=== PATIENT | female | born 1965 | race Caucasian/White ===

== ENCOUNTER 2016-05-18 19:12 | Emergency (ER) | payer MEDICAID ==
[2016-05-18] MEDS ORDERED: Azithromycin 250 MG Tab ONE (19:45)
[2016-05-18] MEDS ORDERED: Codeine/guaiFENesin 100mg-10 MG/5 ML Soln 118 ML Bottle ONE (19:45)
--- NOTE | 2016-05-18 20:52 | EDM.PDOC ---
ED HPI GENERAL MEDICAL PROBLEM - General Chief Complaint: General Stated Complaint: COLD SX Time Seen by Provider: 05/18/16 20:00 Source of Information: Reports: Patient - History of Present Illness INITIAL COMMENTS - FREE TEXT/NARRATIVE: Patient states she has had a cough for 2 weeks. This am coughing up green sputum. Yesterday temp 101. She admits more short of breath with coughing over the last 1 1/2 days. No wheezing. She did take Advil at 5:45 pm. Also has been more tired than usual. She did take some Robitussin [employer]. Onset Date: 05/04/16 - Related Data Allergies Allergy/AdvReac Type Severity Reaction Status Date / Time Sulfa (Sulfonamide Allergy Rash Verified 01/22/16 10:15 Antibiotics) Home Meds: Home Meds Fexofenadine [Lexie] 180 mg PO DAILY 01/02/15 [History] Omeprazole 20 mg PO DAILY 01/02/15 [History] Past Medical History HEENT History: Reports: Impaired vision Respiratory History: Reports: Other (see below) (states a history of asthma but she lost weight and it seemed to get better. She has a albuterol inhaler at home.) Other Gastrointestinal History: Dairy allergy gets loose stools and cramping - Infectious Disease History Infectious Disease History: Reports: Chicken pox Social & Family History - Tobacco Use Smoking Status *Q: Former Smoker Second Hand Smoke Exposure: No - Recreational Drug Use Recreational Drug Use: No ED ROS GENERAL - Review of Systems Review Of Systems: See Below Constitutional: Reports: fever, fatigue Respiratory: Reports: shortness of breath, cough, sputum Cardiovascular: Denies: Chest pain ED EXAM, GENERAL - Physical Exam Exam: See Below General Appearance: alert, WD/WN, no apparent distress Ear Exam: bilateral ear: auricle normal, TM normal Throat/Mouth: Normal inspection, Normal gums, Normal oropharynx Head: atraumatic Neck: supple, non-tender Respiratory/Chest: no respiratory distress, lungs clear, normal breath sounds Cardiovascular: regular rate, rhythm, no edema Departure - Departure Time of Disposition: 20:30 Disposition: Home, Self-Care 01 Condition: good Clinical Impression: Bronchitis Instructions: Azithromycin tablets, Upper Respiratory Infection, Adult, Easy-to -Read, Codeine; Guaifenesin oral solution or syrup Referrals: PCP,None [Primary Care Provider] - Forms: ED Department Discharge Additional Instructions: Begin taking prescribed Azithromycin tonight as directed: 2 tablets tonight, then 1 tablet daily until all pills are gone. May use prescribed Robitussin with Codeine at bedtime as needed to help with cough and for comfort to sleep. Ibuprofen and Tylenol may be alternated according to package instructions to help with pain if needed. Drink plenty of fluids and get plenty of rest. Follow up in clinic with regular provider if needed. Call with any questions. - Problem List & Annotations (1) Bronchitis SNOMED Code(s): 18798395 Code(s): J40 - BRONCHITIS, NOT SPECIFIED ACUTE OR CHRONIC Status: Acute Current Visit: Yes Annotation/Comment:: 05/18/2016 Will treat with zithromax 2 tab today and 1 tab for 4 days, She has an albuterol inhaler she can use at home . Will give her outpatient doses of Robitussin AC to use at HS help her sleep. To recheck if not getting better.
[2016-05-18 23:06] VITALS: BP 153/100
== END 2016-05-18 20:28 | disposition home or self-care (01) ==
LOC: LB.ED 19:12
DX: J40 Bronchitis, not specified as acute or chronic (principal); Z88.2 Allergy status to sulfonamides; Z87.891 Personal history of nicotine dependence
CPT/HCPCS: 99282; A9270-GY

== ENCOUNTER 2017-05-21 21:45 | Emergency (ER) | payer MEDICAID ==
[2017-05-21] MEDS: cloNIDine 0.1 MG Tab PO ONE (21:55)
--- NOTE | 2017-05-21 22:06 | EDM.PDOC ---
ED HPI GENERAL MEDICAL PROBLEM - General Chief Complaint: General Stated Complaint: Pain Time Seen by Provider: 05/21/17 21:45 Source of Information: Reports: Patient History Limitations: Reports: No Limitations - History of Present Illness INITIAL COMMENTS - FREE TEXT/NARRATIVE: According to patient she claims that she has been having left sided chest pressure all day since today afternoon. The pressure feeling is intermittent and make her left arm feel heavy. No chest pain. She claims she felt shortness of breath. No sweating. No exertional dyspnea. No nausea or vomiting. Pt claims she did not feel well and hence came into emergency room. Pressure does not change with deep breath or pressure on chest wall. Pt was treated for pneumonia last . She just finished Zpak today. No cough, fever or chills. No wheezing. No other complaints Onset: Today Onset Date: 05/21/17 Onset Time: 12:00 Duration: Intermittent, Waxing/Waning Location: Reports: Chest Quality: Reports: Ache Severity: Mild Improves with: Reports: None Worsens with: Reports: None Associated Symptoms: Denies: Confusion, Chest Pain, Cough, Fever/Chills, Loss of Appetite, Nausea/Vomiting, Rash, Seizure, Shortness of Breath, Syncope, Weakness Left Chest Pain Score (Numeric/FACES): 2 - Related Data Allergies Allergy/AdvReac Type Severity Reaction Status Date / Time Sulfa (Sulfonamide Allergy Rash Verified 01/22/16 10:15 Antibiotics) Home Meds: Home Meds Fexofenadine [Lexie] 180 mg PO DAILY 01/02/15 [History] Omeprazole 20 mg PO DAILY 01/02/15 [History] Estrogens, Conjugated [Premarin] 0.3 mg PO DAILY 05/18/16 [History] Past Medical History HEENT History: Reports: Impaired Vision Respiratory History: Reports: Other (See Below) Other Respiratory History: Environmental Allergies Gastrointestinal History: Reports: GERD Other Gastrointestinal History: Dairy allergy gets loose stools and cramping SITE SUPERINTENDENT History: Reports: Polycystic Ovaries - Infectious Disease History Infectious Disease History: Reports: Chicken Pox - Past Surgical History Female Surgical History: Reports: Hysterectomy Social & Family History - Family History Family Medical History: Noncontributory - Tobacco Use Smoking Status *Q: Former Smoker Second Hand Smoke Exposure: No - Caffeine Use Caffeine Use: Reports: Coffee - Recreational Drug Use Recreational Drug Use: No ED ROS GENERAL - Review of Systems Review Of Systems: See Below Constitutional: Denies: Fever, Chills, Weakness, Diaphoresis HEENT: Denies: Rhinitis, Sinus Problem, Throat Pain, Throat Swelling Respiratory: Reports: Shortness of Breath. Denies: Wheezing, Pleuritic Chest Pain, Cough, Sputum Cardiovascular: Reports: Chest Pain. Denies: Lightheadedness Endocrine: Denies: Fatigue GI/Abdominal: Denies: Abdominal Pain, Nausea, Vomiting : Denies: Dysuria, Flank Pain, Frequency Musculoskeletal: Denies: Joint Pain, Joint Swelling Skin: Denies: Pruritis, Rash ED EXAM, GENERAL - Physical Exam Exam: See Below Exam Limited By: No Limitations General Appearance: Alert, WD/WN, No Apparent Distress Eye Exam: Bilateral Eye: EOMI, PERRL Ears: Normal External Exam, Normal Canal, Hearing Grossly Normal, Normal TMs Ear Exam: Bilateral Ear: Auricle Normal, Canal Normal, TM normal Nose: Normal Inspection, Normal Mucosa, No Blood Throat/Mouth: Normal Inspection, Normal Lips, Normal Teeth, Normal Gums, Normal Oropharynx, Normal Voice, No Airway Compromise Head: Atraumatic, Normocephalic Neck: Normal Inspection, Supple, Non-Tender, Full Range of Motion Respiratory/Chest: No Respiratory Distress, Lungs Clear, Normal Breath Sounds, No Accessory Muscle Use, Chest Non-Tender Cardiovascular: Normal Peripheral Pulses, Regular Rate, Rhythm, No Edema, No Gallop, No JVD, No Murmur, No Rub Peripheral Pulses: 2+: Carotid (L), Carotid (R), Radial (L), Radial (R) GI/Abdominal: Normal Bowel Sounds, Soft, Non-Tender, No Organomegaly, No Distention, No Abnormal Bruit, No Mass Back Exam: Normal Inspection, Full Range of Motion, NT Extremities: Normal Inspection, Normal Range of Motion, Non-Tender, Normal Capillary Refill, No Pedal Edema Neurological: Alert, Oriented, CN II-XII Intact, Normal Cognition, Normal Gait, Normal Reflexes, No Motor/Sensory Deficits Skin Exam: Warm, Intact EKG INTERPRETATION EKG Date: 05/21/17 Rhythm: NSR Rate (Beats/Min): 72 [place]: Normal P-Wave: Present QRS: Normal ST-T: Normal QT: Normal Course - Vital Signs Text/Narrative:: Pt is 51 year old, who has been having chest pressure since today afternoon, which has not got worse, but has not got better. No chest pain, nausea vomiting , or exertional SOB. Pt's BP is elevated at 170/109mmhg. She does not have history of hypertension. Considering that her BP is high and has chest symptoms , will get cardiac workup. IF this is cardiac we should see elevated troponin as this has been going on for about 10 hrs now. Or this could be related to her elevated BP. Patient has received clonidine 0.1mg. Pt's Chest X-ray is normal. Her EKG is in normal sinus rhythm with rate of 72/ min. Her CBC is normal. CMP is normal. Her Troponin is negative. Pt reassured that the probable cause of her not feeling well is her elevated Blood pressure , which is coming down. This elevated blood pressure could be related to patient's anxiety about chest pressure. I have advised patient to monitor Blood pressure, few times over the next week. If the pressure is over 140/90mmhg, she should be seen in clinic to start her on blood pressure medication. Last Recorded V/S: Last Vital Signs Temp 97.5 F 05/21/17 22:30 Pulse 77 05/21/17 22:30 Resp 20 05/21/17 22:30 BP 142/91 H 05/21/17 22:30 Pulse Ox 97 05/21/17 22:30 - Orders/Labs/Meds Orders: Active Orders 24 hr Category Date Time Status EKG Documentation Completion [RC] ASDIRECTED Care 05/21/17 21:57 Ordered Chest 2V [CR] Stat Exams 05/21/17 21:56 Ordered Labs: Laboratory Tests 05/21/17 05/21/17 Range/Units 21:57 22:05 WBC 5.7 D (4.0-11.0) K/uL RBC 4.35 (3.80-5.80) M/uL Hgb 13.6 (11.5-16.5) g/dL Hct 41.6 (37.0-47.0) % MCV 96 (76-96) fL MCH 31.3 (27.0-32.0) pg MCHC 32.7 (31.0-35.0) g/dL RDW 13.4 (11.0-16.0) % Plt Count 213 (150-500) K/uL MPV 10.7 H (6.0-10.0) fL Neut % (Auto) 57.7 (45.0-70.0) % Lymph % (Auto) 28.4 (20.0-40.0) % Wallace % (Auto) 10.4 H (3.0-10.0) % Eos % (Auto) 2.8 (1.0-5.0) % Baso % (Auto) 0.7 H (0.0-0.5) % Neut # (Auto) 3.26 (2.00-7.50) K/uL Lymph # (Auto) 1.61 (1.50-4.00) K/uL Wallace # (Auto) 0.59 (0.20-0.80) K/uL Eos # (Auto) 0.16 (0.04-0.40) K/uL Baso # (Auto) 0.04 (0.02-0.10) K/uL Sodium 146 H (136-145) mmol/L Potassium 3.9 (3.5-5.1) mmol/L Chloride 104 (98-107) mmol/L Carbon Dioxide 31.5 (21.0-32.0) mmol/L Anion Gap 14.4 (5.0-15.0) mmol/L BUN 13 (8-26) mg/dL Creatinine 0.96 (0.55-1.02) mg/dL Est Cr Clr Drug Dosing 63.79 mL/min Estimated GFR (MDRD) > 60 (>60) MLS/MIN BUN/Creatinine Ratio 13.5 (6-25) Glucose 95 (74-100) mg/dL Calcium 8.5 (8.5-10.1) mg/dL Total Bilirubin 0.2 D (0.0-1.0) mg/dL AST 12 L (15-37) U/L ALT 31 (12-78) U/L Alkaline Phosphatase 73 (46-116) U/L Troponin I < 0.017 (0.000-0.060) ng/mL Total Protein 7.6 (6.4-8.2) g/dL Albumin 3.6 (3.4-5.0) g/dL Globulin 4.0 (2.2-4.2) g/dL Albumin/Globulin Ratio 0.9 (0.8-2.0) Meds: Medications Discontinued Medications Generic Name Dose Route Start Last Admin Trade Name Jp PRN Reason Stop Dose Admin Clonidine HCl 0.1 mg 05/21/17 21:57 05/21/17 21:55 Catapres PO 05/21/17 21:58 0.1 mg ONETIME ONE Administration Departure - Departure Time of Disposition: 22:50 Disposition: Home, Self-Care 01 Condition: Good Clinical Impression: Elevated blood pressure reading, Chest discomfort - Discharge Information Instructions: Hypertension, [id number], Preventing Hypertension Referrals: PCP,None [Primary Care Provider] - Forms: ED Department Discharge Additional Instructions: Pt's Chest X-ray is normal. Her EKG is in normal sinus rhythm with rate of 72/ min. Her CBC is normal. CMP is normal. Her Troponin is negative. Pt reassured that the probable cause of her not feeling well is her elevated Blood pressure , which is coming down. This elevated blood pressure could be related to patient's anxiety about chest pressure. I have advised patient to monitor Blood pressure, few times over the next week. If the pressure is over 140/90mmhg, she should be seen in clinic to start her on blood pressure medication. - Problem List & Annotations (1) Chest discomfort SNOMED Code(s): 534247521 Code(s): R07.89 - OTHER CHEST PAIN Status: Acute Current Visit: Yes (2) Elevated blood pressure reading SNOMED Code(s): 50319723 Code(s): R03.0 - ELEVATED BLOOD-PRESSURE READING, W/O DIAGNOSIS OF HTN Status: Acute Current Visit: Yes - Problem List Review Problem List Initiated/Reviewed/Updated: Yes - My Orders Last 24 Hours: My Active Orders 05/21/17 21:56 Chest 2V [CR] Stat 05/21/17 21:57 EKG Documentation Completion [RC] ASDIRECTED - Assessment/Plan Last 24 Hours: My Active Orders 05/21/17 21:56 Chest 2V [CR] Stat 05/21/17 21:57 EKG Documentation Completion [RC] ASDIRECTED Assessment:: Elevated blood pressure with chest discomfort Plan: Pt's Chest X-ray is normal. Her EKG is in normal sinus rhythm with rate of 72/ min. Her CBC is normal. CMP is normal. Her Troponin is negative. Pt reassured that the probable cause of her not feeling well is her elevated Blood pressure , which is coming down. This elevated blood pressure could be related to patient's anxiety about chest pressure. I have advised patient to monitor Blood pressure, few times over the next week. If the pressure is over 140/90mmhg, she should be seen in clinic to start her on blood pressure medication.
[2017-05-21 22:48] VITALS: BP 128/86
--- NOTE | 2017-05-22 09:12 | CR ---
DATE OF SERVICE: 05/21/17 CLINICAL DATA: chest discomfort, recent pneumonia PA AND LATERAL CHEST: Comparison is made to a prior exam dated 05/03/15. The heart size is normal. There are minimal atelectatic changes in both lung bases. The lungs are otherwise clear. No pneumothorax. No pleural effusions. No areas of consolidation. No other significant findings. [id number] MTDD
== END 2017-05-21 22:48 | disposition home or self-care (01) ==
LOC: LB.ED 21:45
DX: R07.89 Other chest pain (principal); R03.0 Elevated blood-pressure reading, without diagnosis of hypertension; K21.9 Gastro-esophageal reflux disease without esophagitis; Z88.2 Allergy status to sulfonamides; Z79.899 Other long term (current) drug therapy; Z87.891 Personal history of nicotine dependence
CPT/HCPCS: 36415; 71046; 80053; 84484; 85025; 93005; 99285-25; A9270-GY

== ENCOUNTER 2017-11-28 19:13 | Emergency (ER) | payer MEDICAID ==
[2017-11-28] MEDS ORDERED: Acetaminophen/HYDROcodone 325-5 MG Tab ONE (19:20)
[2017-11-28] MEDS ORDERED: HYDROmorphone 2 MG/ML Syringe SUBCUT ONE (19:35)
[2017-11-28 19:38] VITALS: BP 161/99
--- NOTE | 2017-11-28 21:45 | ER ---
HPI: A 52-year-old lady here with complaints of abdominal pain on the right side that started about 3 or 4 hours ago. She states that it is slowly getting worse. She is uncomfortable from the pain. She denies any falls or injuries. She is not having any other symptoms. She denies any nausea, vomiting, diarrhea, hematuria, or dysuria. She denies running a fever. She has not been coughing. She states that she just has this pain that does not go away. She has not taken any [id number] pain medication. The patient has no previous history of a similar nature. PAST SURGICAL HISTORY: Surgical history includes hysterectomy. MEDICATIONS: The patient is currently on medications for hypertension, allergy medications, and a PPI for GERD symptoms. OBJECTIVE: GENERAL APPEARANCE: The patient is awake and alert. She is uncomfortable from the pain. VITAL SIGNS: Reviewed. Blood pressure 161/99. She is afebrile, pulse 83, O2 sats are 99%. Physical exam, abdomen reveals some tenderness with palpation of the right mid and lower abdomen. The epigastric area appears nontender with palpation, and the left side of the abdomen is nontender. There is guarding with palpation, but no rebound tenderness. Bowel sounds are present, but hypoactive. SKIN: Warm and dry. CARDIAC: Heart sounds distinct without murmurs. INITIAL TREATMENT: Dilaudid 2 mg was given subcutaneously which did significantly improve the patient's pain within about 15 minutes. LABS: Include a CBC showing a normal white count. A comprehensive metabolic panel shows electrolytes are good. Kidney function is normal. GFR is greater than 60. UA is positive for small amount of occult blood and 5-[address] of the abdomen and pelvis reveals nonobstructive right renal stones measuring 1-3 mm. There is no hydronephrosis. There is also some mildly distended air and fluid- filled loops of small bowel, likely within the normal limits, per radiologist report. DIAGNOSIS: Renal stones. TREATMENT PLAN: The patient is resting quietly at this time. She states her pain is gone, but she feels tired and a little sore. We will discharge the patient with hydrocodone tablets to take as needed, 1 tablet every 6 hours. I advised the patient to increase her water intake, and I gave her slip to be off tomorrow if needed. Followup should be over the next 2 or 3 days and on a p.r.n. basis if her symptoms should get worse. If her symptoms get better, I will like the patient to recheck next week with her primary care provider. CRS/MODL /[id number] MTDD
--- NOTE | 2017-12-01 08:46 | CT ---
DATE OF SERVICE: 11/28/17 CLINICAL DATA: Abd pain - LRQ. UNENHANCED ABDOMEN AND PELVIC CT: Multislice acquisition through the abdomen and pelvis without IV or oral contrast was performed. No priors. There are minimal atelectatic changes in the right lung base. The lungs are otherwise clear. There is diffuse heterogeneous fatty infiltration of the liver. The liver is otherwise unremarkable. The gallbladder appears normal. The spleen appears normal. The pancreas appears normal. The right and left adrenals appear normal. There is a small nonobstructing renal calculi in the lower pole of the right kidney. The kidneys otherwise appear normal. No hydronephrosis or hydroureter. The bladder is partially fluid filled. It appears grossly normal. The appendix is not dilated. No evidence of appendicitis. There is mild diverticulosis. No evidence of diverticulitis. There is a small umbilical hernia containing fat. No free air. No free fluid. No dilated loops of bowel. No adenopathy. No aortic aneurysm. [id number] [facility]
== END 2017-11-28 21:02 | disposition home or self-care (01) ==
LOC: LB.ED 19:13
DX: N20.0 Calculus of kidney (principal); I10 Essential (primary) hypertension; Z79.899 Other long term (current) drug therapy
CPT/HCPCS: 36415; 74176; 80053; 81001; 85025; 96372; 99284-25; A9270-GY; J1170